=== PATIENT | male | born 1975 | race Two or more races ===

== ENCOUNTER 2022-07-21 16:52 | Emergency (ER) | payer MEDICAID ==
[~2022-07-21] VITALS: Ht 167.6 cm; Wt 65.9 kg
[2022-07-21 17:01] VITALS: BP 150/92
[2022-07-21] MEDS ORDERED: IBUPROFEN 600 MG TABLET PO ONE (17:15)
[2022-07-21] MEDS ORDERED: IBUP-1492 PO (18:34)
== END 2022-07-21 18:40 | disposition home or self-care (01) ==
LOC: EMS 16:53
DX: S52.512A Displaced fracture of left radial styloid process, initial encounter for closed fracture (principal); S52.511A Displaced fracture of right radial styloid process, initial encounter for closed fracture; S40.011A Contusion of right shoulder, initial encounter; F17.210 Nicotine dependence, cigarettes, uncomplicated; F12.90 Cannabis use, unspecified, uncomplicated; W18.30XA Fall on same level, unspecified, initial encounter; Y93.89 Activity, other specified; Y92.89 Other specified places as the place of occurrence of the external cause; Y99.8 Other external cause status
CPT/HCPCS: 99284; 73030-TC; 73110-TC; Z7502; Z7610